=== PATIENT | male | born 1975 | race Caucasian/White ===

== ENCOUNTER 2020-01-16 11:05 | Emergency (ER) | payer OTHER ==
[~2020-01-16] VITALS: Ht 170.2 cm; Wt 99.8 kg
[2020-01-16] MEDS ORDERED: CLEOCIN HCL150 MG PO (12:10)
[2020-01-16 12:11] VITALS: BP 128/88
== END 2020-01-16 12:14 | disposition home or self-care (01) ==
LOC: M.ERS 11:05
DX: L03.116 Cellulitis of left lower limb (principal)

== ENCOUNTER 2020-01-22 10:09 | Emergency (ER) | payer OTHER ==
[~2020-01-22] VITALS: Ht 170.2 cm; Wt 99.8 kg
[~2020-01-22 10:09] MED LIST: CLEOCIN HCL150 MG PO
[2020-01-22 10:42] LABS: ABSOLUTE EOSINOPHILS 2.3 thou/uL (0.0-0.7); ABSOLUTE LYMPHOCYTES 2.6 thou/uL (0.8-5.3); ABSOLUTE NEUTROPHILS 8.1 thou/uL (1.6-8.1); BASOPHILS 0.2 %; EOSINOPHILS 16.1 %; HEMATOCRIT 49.2 % (42.0-52.0); HEMOGLOBIN 16.8 gm/dL (14.0-18.0); LYMPHOCYTES 18.9 %; MCH 31.3 pg (26.0-34.0); MCHC 34.1 g/dL (28.0-37.0); MCV 91.7 fL (80.0-100.0); MONOCYTES 6.9 %; MPV 9.1 fl. (7.2-11.1); NUCLEATED RBCS 0 /100WBC; PLATELET COUNT* 257 thou/uL (150-400); POLYS 57.9 %; RBC 5.37 mil/uL (4.50-6.00); RDW-CV 13.1 % (10.5-14.5); WBC 13.9 thou/uL (4.0-11.0)
[2020-01-22 10:51] LABS: CALCIUM 9.1 mg/dL (8.5-10.1); CREATININE 1.3 mg/dL (0.6-1.3); POTASSIUM 4.1 mmol/L (3.5-5.1)
[2020-01-22 10:56] LABS: ALBUMIN 4.4 g/dL (3.4-5.0); TOTAL BILIRUBIN 0.5 mg/dL (<0.1-1.0); TOTAL PROTEIN 8.7 g/dL (6.4-8.2)
[2020-01-22] MEDS ORDERED: KEFLEX500 M1 PO (11:13)
[2020-01-22] MEDS ORDERED: BACTRIM DS TAB1 EACH PO (11:13)
[2020-01-22] MEDS ORDERED: TRAMADOL 50 MG50 MG PO (11:13)
[2020-01-22 11:26] VITALS: BP 126/76
== END 2020-01-22 11:26 | disposition home or self-care (01) ==
LOC: M.ERS 10:09
PROVIDERS: Nurse Practitioner Psychiatric/Mental Health
DX: I87.8 Other specified disorders of veins (principal)